=== PATIENT | male | born 1995 | race American Indian/Alaskan Native ===

== ENCOUNTER 2020-06-27 15:34 | Emergency (ER) | payer SELFPAY ==
[2020-06-27 15:58] VITALS: BP 119/72
[2020-06-27] MEDS ORDERED: levETIRAcetam 1000 MG/NS 0.75% 1,000 MG/100 ML BAG IV ONE (16:42)
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
== END 2020-06-27 18:44 | disposition home or self-care (01) ==
LOC: ED 15:34
DX: G40.909 Epilepsy, unspecified, not intractable, without status epilepticus (principal); F17.200 Nicotine dependence, unspecified, uncomplicated; F12.10 Cannabis abuse, uncomplicated; Z91.14 Patient's other noncompliance with medication regimen; Z79.899 Other long term (current) drug therapy
CPT/HCPCS: 96365; 99283; J1953

== ENCOUNTER 2020-08-28 15:05 | Emergency (ER) | payer SELFPAY ==
[2020-08-28] MEDS ORDERED: levETIRAcetam 1000 MG/NS 0.75% 1,000 MG/100 ML BAG IV ONE (15:37)
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
[2020-08-28 16:06] LABS: Basophils % (Auto) 0.5 % (0.0-1.8); Eosinophils # (Auto) 0.1 K/mm3 (0.0-0.4); Eosinophils % (Auto) 1.5 % (0.0-4.3); Hematocrit 46.2 % (35.5-45.6); Hemoglobin 15.8 gm/dl (11.8-15.2); Lymphocytes # (Auto) 1.3 K/mm3 (1.2-5.4); Lymphocytes % (Auto) 19.2 % (13.4-35.0); Mean Corpuscular HGB Conc 34 % (32-34); Mean Corpuscular Volume 78 fl (84-94); Monocytes # (Auto) 0.4 K/mm3 (0.0-0.8); Monocytes % (Auto) 5.2 % (0.0-7.3); Platelet Count 194 K/mm3 (140-440); Red Cell Distribution Width 15.3 % (13.2-15.2)
[2020-08-28 16:37] LABS: Alanine Aminotransferase 23 units/L (7-56); Albumin 4.9 g/dL (3.9-5); BUN/Creatinine Ratio 11; Blood Urea Nitrogen 10 mg/dL (9-20); Calcium 9.6 mg/dL (8.4-10.2); Hemolysis Index 25
[2020-08-28 16:39] LABS: Bilirubin,Direct < 0.2 mg/dL (0-0.2)
--- NOTE | 2020-08-28 16:41 | Cat Scan Report ---
CT head/brain wo con INDICATION / CLINICAL INFORMATION: 25 years Male; Seizure. TECHNIQUE: Routine CT head without contrast. All CT scans at this location are performed using CT dos e reduction for ALARA by means of automated exposure control. COMPARISON: The study is compared to previous CT of 01/24/2020. FINDINGS: BRAIN / INTRACRANIAL CONTENTS: There is again a small focus of decreased attenuation involving medial frontal white matter adjacent to the frontal horn which remains nonspecific. Similar findings were n oted on the prior study. There appears be small a defect involving the right frontal calvarium and co rrelation would be needed regarding previous shunt or probe placement. Otherwise, the brain appears t o demonstrate appropriate attenuation. The ventricular system is unchanged in size and configuration. There is no clear CT evidence of acute intracranial hemorrhage or significant mass effect. ORBITS: No significant abnormality of visualized orbits. SINUSES / MASTOIDS: No significant abnormality in the visualized paranasal sinuses or mastoid air yung ls. CRANIOCERVICAL JUNCTION: No significant abnormality. ADDITIONAL FINDINGS: None. IMPRESSION: 1. There are milder continued white matter changes involving the frontal lobe as detailed above witho ut significant overall change from 01/24/2020. Signer Name: Patricio Pérez MD Signed: 08/28/2020 4:37 PM Workstation Name: [id number]
[2020-08-28 20:05] VITALS: BP 100/58
== END 2020-08-28 22:58 | disposition home or self-care (01) ==
LOC: ED 15:05
DX: G40.909 Epilepsy, unspecified, not intractable, without status epilepticus (principal); Z79.899 Other long term (current) drug therapy
CPT/HCPCS: 36415; 70450; 80048; 80076; 85025; 96374; 99284; J1953

== ENCOUNTER 2021-03-11 08:34 | Emergency (ER) | payer SELFPAY ==
[2021-03-11] MEDS ORDERED: levETIRAcetam 1000 MG/NS 0.75% 1,000 MG/100 ML BAG IV ONE (09:11)
--- NOTE | 2021-03-11 09:15 | Emergency Department Report ---
ED Seizure HPI - General Chief Complaint: Seizure Stated Complaint: SEIZURE Time Seen by Provider: 03/11/21 09:08 Source: EMS Mode of arrival: Stretcher Limitations: No Limitations - History of Present Illness Initial Comments: Patient is 25 years old male with history of seizure on Keppra. Patient brought to the emergency room via EMS from home for evaluation of multiple episode of seizure. According to the patient mother she told EMS that he had one last night and he had one this morning. EMS also reported that patient had another generalized tonic-clonic seizure in the ambulance with urinary incontinence. Patient received 2 mg of IV Ativan by EMS. No reported seizure since then. Patient mother stated that she is not sure if the patient is compliant with his medication or not. MD Complaint: seizure -: Last night, This morning Description of Episode: loss of consciousness, tonic-clonic movement, bladder incontinence, post-event confusion Witnessed:: Yes Trauma: No Seizure History: known seizure disorder Place: home Possible Precipitating Event: none Associated Symptoms: denies other symptoms Treatments Prior to Arrival: benzodiazepines - Related Data Previous Rx's Medication Instructions Recorded Last Taken Type levETIRAcetam [Keppra TAB] 500 mg PO BID #60 tablet 06/27/20 Unknown Rx levETIRAcetam [Keppra TAB] 500 mg PO BID #120 tablet 08/28/20 Unknown Rx Allergies Allergy/AdvReac Type Severity Reaction Status Date / Time No Known Allergies Allergy Verified 03/11/21 10:31 ED Review of Systems ROS: Stated complaint: SEIZURE Other details as noted in HPI Comment: All other systems reviewed and negative Constitutional: denies: chills, fever Respiratory: denies: cough, shortness of breath, SOB with exertion Gastrointestinal: denies: abdominal pain, nausea, vomiting Neurological: denies: headache, weakness, numbness, paresthesias, confusion ED Past Medical Hx - Past Medical History Hx Seizures: Yes Additional medical history: VANDANA - Surgical History Additional Surgical History: VANDANA - Social History Smoking Status: Unknown if ever smoked - Medications Home Medications: Home Medications Medication Instructions Recorded Confirmed Last Taken Type levETIRAcetam [Keppra TAB] 500 mg PO BID #60 tablet 06/27/20 Unknown Rx levETIRAcetam [Keppra TAB] 500 mg PO BID #120 tablet 08/28/20 Unknown Rx ED Physical Exam - General Limitations: No Limitations General appearance: in no apparent distress, postictal - Head Head exam: Present: atraumatic, normocephalic, normal inspection - Eye Eye exam: Present: normal appearance - ENT ENT exam: Present: normal exam, normal orophraynx, mucous membranes moist - Neck Neck exam: Present: normal inspection, full ROM. Absent: tenderness, meningismus - Respiratory Respiratory exam: Present: normal lung sounds bilaterally - Cardiovascular Cardiovascular Exam: Present: regular rate, normal rhythm, normal heart sounds - GI/Abdominal GI/Abdominal exam: Present: soft, normal bowel sounds. Absent: distended, tenderness, guarding, rebound, rigid, organomegaly, mass, bruit, pulsatile mass, hernia - Extremities Exam Extremities exam: Present: normal inspection, full ROM, normal capillary refill. Absent: tenderness, pedal edema, joint swelling, calf tenderness - Back Exam Back exam: Present: normal inspection, full ROM. Absent: CVA tenderness (R), CVA tenderness (L) - Neurological Exam Neurological exam: Present: alert, oriented X3, CN II-XII intact, normal gait, reflexes normal. Absent: motor sensory deficit - Psychiatric Psychiatric exam: Present: normal mood - Skin Skin exam: Present: warm, intact, normal color ED Course Vital Signs 03/11/21 08:38 Temperature 98.7 F Pulse Rate 89 Respiratory 18 Rate Blood Pressure 132/79 [Left] O2 Sat by Pulse 100 Oximetry ED Medical Decision Making - Lab Data Result diagrams: 03/11/21 12:06 03/11/21 12:06 - Medical Decision Making Patient is 25 years old male with history of seizure on Keppra. Patient brought to the emergency room via EMS from home for evaluation of multiple episode of seizure. According to the patient mother she told EMS that he had one last night and he had one this morning. EMS also reported that patient had another generalized tonic-clonic seizure in the ambulance with urinary incontinence. Patient received 2 mg of IV Ativan by EMS. No reported seizure since then. Patient mother stated that she is not sure if the patient is compliant with his medication or not. Patient remained stable in the ER with stable vital sign. Patient received 1 g of Keppra IV. No seizure activity observed. Labs reviewed and is unremarkable except for mild leukocytosis most likely secondary to seizure. No evidence clinically of infection. Patient given prescription for Keppra and advised to follow-up with his neurologist in the next 2 to 3 days and to return to the ER if he develop any new symptoms. Critical care attestation.: If time is entered above; I have spent that time in minutes in the direct care of this critically ill patient, excluding procedure time. ED Disposition Clinical Impression: Seizure Disposition: 01 HOME / SELF CARE / HOMELESS Is pt being admited?: No Condition: Stable Instructions: Seizure, Adult Referrals: PRIMARY CARE, [Primary Care Provider] - 3-5 Days
[2021-03-11 12:12] LABS: Hematocrit 48.4 % (35.5-45.6); Hemoglobin 16.2 gm/dl (11.8-15.2); Mean Corpuscular HGB Conc 33 % (32-34); Mean Corpuscular Volume 77 fl (84-94); Platelet Count 238 K/mm3 (140-440); Red Blood Count 6.26 M/mm3 (3.65-5.03); Red Cell Distribution Width 15.4 % (13.2-15.2)
[2021-03-11 12:35] LABS: Alanine Aminotransferase 30 units/L (7-56); Albumin 4.9 g/dL (3.9-5); BUN/Creatinine Ratio 19; Blood Urea Nitrogen 15 mg/dL (9-20); Calcium 10.1 mg/dL (8.4-10.2); Hemolysis Index 10
[2021-03-11 12:38] LABS: Bilirubin,Direct < 0.2 mg/dL (0-0.2)
[2021-03-11 16:31] VITALS: BP 111/59
[2021-03-11 16:48] LABS: Band Neutrophils # (Manual) 0.1 K/mm3; Total Cells Counted 100
[2021-03-11 16:49] LABS: Platelet Estimate Consistent w Auto; RBC Morphology Normal
== END 2021-03-11 16:37 | disposition home or self-care (01) ==
LOC: ED 08:34
DX: R56.9 Unspecified convulsions (principal); Z79.899 Other long term (current) drug therapy
CPT/HCPCS: 36415; 80048; 80076; 85007; 85025; 96365; 96366; 99284; J1953

== ENCOUNTER 2021-07-13 13:58 | Emergency (ER) | payer SELFPAY ==
[2021-07-13] MEDS ORDERED: SODIUM CHLORIDE 0.9% 1000 ML 1,000 ML IV ONE (14:11)
--- NOTE | 2021-07-13 14:18 | Emergency Department Report ---
HPI - General Chief Complaint: Seizure Time Seen by Provider: 07/13/21 14:10 - HPI HPI: 25-year-old male with history of seizure disorder brought in by EMS after an apparent seizure. According to the EMS report, the patient was in the bathroom and his mom heard a loud thump. She found the patient in the bathroom, confused consistent with a postictal state. The patient takes Keppra for seizure disorder. When EMS arrived, they stated that the patient was very confused, displayed no signs of trauma. His fingerstick glucose was found to be 57 and he was given 25 g of D50. Subsequently his fingerstick blood glucose was 180. Upon my assessment of the patient, he is now able to converse and states that he takes Keppra twice daily and has not missed any doses. He has no memory for the event earlier. He reports only a mild generalized headache at this time which is consistent with his prior postictal states. He denies any alcohol ingestion, recent fasting, or any other recent symptoms or complaints. Nonetheless, details of the HPI are highly limited due to the patient's clinical condition. ED Past Medical Hx - Past Medical History Hx Seizures: Yes Additional medical history: VANDANA - Surgical History Additional Surgical History: VANDANA - Social History Smoking Status: Unknown if ever smoked - Medications Home Medications: Home Medications Medication Instructions Recorded Confirmed Last Taken Type levETIRAcetam [Keppra TAB] 500 mg PO BID #60 tablet 06/27/20 Unknown Rx levETIRAcetam [Keppra TAB] 500 mg PO BID #120 tablet 08/28/20 Unknown Rx levETIRAcetam [Keppra TAB] 500 mg PO BID #60 tablet 03/11/21 Unknown Rx ED Review of Systems ROS: Stated complaint: SEIZURE Other details as noted in HPI ED Medical Decision Making - Lab Data Result diagrams: 07/13/21 14:54 07/13/21 14:54 Critical care attestation.: If time is entered above; I have spent that time in minutes in the direct care of this critically ill patient, excluding procedure time. ED Disposition Clinical Impression: Seizure, Fall from ground level, Sleep deprivation, Hypoglycemia Disposition: 01 HOME / SELF CARE / HOMELESS Is pt being admited?: No Condition: Stable Instructions: Seizure, Adult, Hypoglycemia, Preventing Hypoglycemia Additional Instructions: Continue to take your Keppra exactly as prescribed. Return to the emergency department for any worsening symptoms or new health concerns. Follow-up with a primary care doctor or neurologist within the next several days. Referrals: [facility] [Provider Group] - 3-5 Days
[2021-07-13 15:23] LABS: Alanine Aminotransferase 17 units/L (7-56); Albumin 4.5 g/dL (3.9-5); BUN/Creatinine Ratio 12; Blood Urea Nitrogen 12 mg/dL (9-20); Calcium 9.4 mg/dL (8.4-10.2); Hemolysis Index 5
[2021-07-13 15:24] LABS: Basophils % (Auto) 0.9 % (0.0-1.8); Eosinophils % (Auto) 1.2 % (0.0-4.3); Hematocrit 47.7 % (35.5-45.6); Hemoglobin 15.1 gm/dl (11.8-15.2); Lymphocytes # (Auto) 0.9 K/mm3 (1.2-5.4); Lymphocytes % (Auto) 24.7 % (13.4-35.0); Mean Corpuscular HGB Conc 32 % (32-34); Mean Corpuscular Volume 79 fl (84-94); Monocytes # (Auto) 0.3 K/mm3 (0.0-0.8); Monocytes % (Auto) 8.9 % (0.0-7.3); Platelet Count 205 K/mm3 (140-440); Red Blood Count 6.04 M/mm3 (3.65-5.03); Red Cell Distribution Width 15.3 % (13.2-15.2)
[2021-07-13 15:34] LABS: Bilirubin,Direct < 0.2 mg/dL (0-0.2)
[2021-07-13 16:30] VITALS: BP 98/53
[2021-07-13] MEDS ORDERED: levETIRAcetam 500 MG TAB PO ONE (18:03)
--- NOTE | 2021-07-13 18:33 | Cat Scan Report ---
CT head/brain wo con INDICATION / CLINICAL INFORMATION: 25 years Male; fall, seizure. TECHNIQUE: Routine CT head without contrast. All CT scans at this location are performed using CT dos e reduction for ALARA by means of automated exposure control. COMPARISON: 08/28/2020 FINDINGS: BRAIN / INTRACRANIAL CONTENTS: No acute hemorrhage, mass effect, midline shift, hydrocephalus, or acu te, large territorial infarct. No signs of significant atrophy or chronic infarct. No significant whi te matter abnormality seen. CRANIOCERVICAL JUNCTION: No significant abnormality. ORBITS: No significant abnormality of visualized orbits. SINUSES / MASTOIDS: Visualized paranasal sinuses and mastoid air cells are essentially clear. ADDITIONAL FINDINGS: Prominent soft tissue is seen in the roof the nasopharynx, presumably related to reactive adenoidal tissue. Please clinically correlate. IMPRESSION: 1. No focal mass, hemorrhage, hydrocephalus, or acute, large territorial infarct. Signer Name: Rocael Barraza MD, III Signed: 07/13/2021 6:28 PM Workstation Name: [id number]
--- NOTE | 2021-07-15 11:30 | Electrocardiograph Report ---
[facility] Test Date: 2021-07-13 Test Time: 14:09:51 Pat Name: DIANE ORTIZ Department: Room: Gender: M Kiln Setter: GRACE : 1995 Requested By: NE AJ Order Number: [id number] Reading MD: Monroe Manriquez Measurements Intervals [place] Rate: 61 P: 76 WA: 160 QRS: 85 QRSD: 110 T: 73 QT: 407 QTc: 411 Interpretive Statements Sinus rhythm ST elevation suggests early repolarization,consider acute pericarditis No previous ECG available for comparison Electronically Signed On 07-15-2021 11:30:02 EST by Monroe Manriquez
== END 2021-07-13 21:19 | disposition home or self-care (01) ==
LOC: ED 13:58
DX: G40.909 Epilepsy, unspecified, not intractable, without status epilepticus (principal); W18.39XA Other fall on same level, initial encounter; Y93.89 Activity, other specified; Y92.89 Other specified places as the place of occurrence of the external cause; Y99.8 Other external cause status; Z72.820 Sleep deprivation; E16.2 Hypoglycemia, unspecified
CPT/HCPCS: 36415; 70450; 80048; 80076; 80320; 82962; 83690; 83735; 85025; 93005; 93010; 96360; 99284; G0480

== ENCOUNTER 2021-10-19 12:35 | Emergency (ER) | payer OTHER ==
[2021-10-19 13:01] VITALS: BP 122/85
== END 2021-10-19 14:00 | disposition left against medical advice (07) ==
LOC: ED 12:35
DX: R56.9 Unspecified convulsions (principal); Z53.21 Procedure and treatment not carried out due to patient leaving prior to being seen by health care provider

== ENCOUNTER 2021-10-19 19:47 | Emergency (ER) | payer OTHER ==
[2021-10-19] MEDS ORDERED: levETIRAcetam 1000 MG/NS 0.75% 1,000 MG/100 ML BAG IV ONE (20:21)
--- NOTE | 2021-10-19 20:30 | Emergency Department Report ---
ED Seizure HPI - General Chief Complaint: Seizure Stated Complaint: SEIZURE Time Seen by Provider: 10/19/21 20:18 Source: EMS Mode of arrival: Stretcher Limitations: Altered Mental Status - History of Present Illness Initial Comments: 26 yo male with a history of seizures. Patient was here earlier for seizure but left prior to being evaluated. Apparently had a seizure after returning home. Mom provided Keppra refuse ED transport at that time. Patient had another seizure and therefore was subsequently was transported back to the hospital. Is currently postictal. No meds provided in route. Compliance with seizure medication unknown at this time. As per previous MAR patient has been prescribed Keppra - Related Data Previous Rx's Medication Instructions Recorded Last Taken Type levETIRAcetam [Keppra TAB] 500 mg PO BID #120 tablet 08/28/20 Unknown Rx levETIRAcetam [Keppra TAB] 500 mg PO BID #60 tablet 03/11/21 Unknown Rx levETIRAcetam [Keppra TAB] 500 mg PO BID #60 tablet 10/19/21 Unknown Rx Allergies Allergy/AdvReac Type Severity Reaction Status Date / Time No Known Allergies Allergy Verified 03/11/21 10:31 ED Review of Systems ROS: Stated complaint: SEIZURE Other details as noted in HPI Comment: All other systems reviewed and negative ED Past Medical Hx - Past Medical History Previous Medical History?: Yes Hx Seizures: Yes Additional medical history: VANDANA - Surgical History Past Surgical History?: Yes Additional Surgical History: VANDANA - Social History Smoking Status: Unknown if ever smoked - Medications Home Medications: Home Medications Medication Instructions Recorded Confirmed Last Taken Type levETIRAcetam [Keppra TAB] 500 mg PO BID #120 tablet 08/28/20 Unknown Rx levETIRAcetam [Keppra TAB] 500 mg PO BID #60 tablet 03/11/21 Unknown Rx levETIRAcetam [Keppra TAB] 500 mg PO BID #60 tablet 10/19/21 Unknown Rx ED Physical Exam - General Limitations: Altered Mental Status - Other Other exam information: General: No acute distress Head: Atraumatic Eyes: normal appearance ENT: Moist mucous membranes Neck: Normal appearance, no midline tenderness Chest: Clear to auscultation bilaterally CV: Regular rate and rhythm Abdomen: Soft, normal bowel sounds, nontender, nondistended, no rebound or guarding Back: Normal inspection Extremity: Normal inspection, full range of motion Neuro: Alert O x 3, no facial asymmetry, speech clear, no gross motor sensory deficit Psych: Appropriate behavior Skin: No rash ED Course Vital Signs 10/19/21 10/19/21 10/19/21 20:14 21:28 21:31 Temperature 97.9 F Pulse Rate 99 H 85 82 Respiratory 18 19 18 Rate Blood Pressure 113/74 113/74 Blood Pressure 150/69 [Right] O2 Sat by Pulse 96 93 97 Oximetry 10/19/21 10/19/21 10/19/21 21:45 22:01 22:15 Temperature Pulse Rate 69 Respiratory 19 17 17 Rate Blood Pressure 113/62 104/56 92/53 Blood Pressure [Right] O2 Sat by Pulse 96 96 96 Oximetry 10/19/21 10/19/21 10/19/21 22:31 22:45 23:40 Temperature Pulse Rate 87 Respiratory 43 H Rate Blood Pressure 115/61 115/61 120/54 Blood Pressure [Right] O2 Sat by Pulse 91 Oximetry 10/19/21 10/20/21 23:46 00:21 Temperature Pulse Rate Respiratory Rate Blood Pressure 120/54 120/54 Blood Pressure [Right] O2 Sat by Pulse 100 97 Oximetry - Reevaluation(s) Reevaluation #1: 10/19/21 22:00 pt alert, c/o feeling tired, states compliant with meds and he does not need a refill. awaiting iv keppra in ed. 22:31pt having another seizure at this time keppra ordered 2 hours ago was just started nurse told to provide ativan ED Medical Decision Making - Lab Data Result diagrams: 10/19/21 20:38 10/19/21 20:38 Lab Results 10/19/21 10/19/21 Range/Units 20:38 20:38 WBC 13.9 H (4.5-11.0) K/mm3 RBC 6.27 H (3.65-5.03) M/mm3 Hgb 16.2 H (11.8-15.2) gm/dl Hct 49.8 H (35.5-45.6) % MCV 80 L (84-94) fl MCH 26 L (28-32) pg MCHC 33 (32-34) % RDW 15.6 H (13.2-15.2) % Plt Count 262 (140-440) K/mm3 Lymph % (Auto) Nutritional Chemist [place] % (Auto) Nutritional Chemist Eos % (Auto) Nutritional Chemist Baso % (Auto) Nutritional Chemist Lymph # (Auto) Nutritional Chemist [place] # (Auto) Nutritional Chemist Eos # (Auto) Nutritional Chemist Baso # (Auto) Nutritional Chemist Seg Neutrophils % Nutritional Chemist Seg Neutrophils # Nutritional Chemist Sodium 136 L (137-145) mmol/L Potassium 5.0 (3.6-5.0) mmol/L Chloride 99.5 (98-107) mmol/L Carbon Dioxide 20 L (22-30) mmol/L Anion Gap 22 mmol/L BUN 11 (9-20) mg/dL Creatinine 0.8 (0.8-1.3) mg/dL Estimated GFR > 60 ml/min BUN/Creatinine Ratio 14 % Glucose 103 H (75-100) mg/dL Calcium 10.1 (8.4-10.2) mg/dL Magnesium 2.30 (1.7-2.3) mg/dL - Medical Decision Making 26 yo male with sz d/o had multiple sz today provided keppra and ativan in the ED plan to d/c once awake and at baseline Critical Care Time: No Critical care attestation.: If time is entered above; I have spent that time in minutes in the direct care of this critically ill patient, excluding procedure time. ED Disposition Clinical Impression: Seizure Disposition: 01 HOME / SELF CARE / HOMELESS Is pt being admited?: No Does the pt Need Aspirin: No Condition: Stable Instructions: Seizure, Adult Additional Instructions: Take the medication as prescribed. Follow-up with your doctor or doctor/clinic provided. Return if symptoms worsen as indicated by your discharge instructions. Prescriptions: levETIRAcetam [Keppra TAB] 500 mg PO BID #60 tablet Referrals: SANA BATES MD [Staff Physician] - 7-10 days (neurology ) Time of Disposition: 23:34
[2021-10-19 21:07] LABS: Hematocrit 49.8 % (35.5-45.6); Hemoglobin 16.2 gm/dl (11.8-15.2); Mean Corpuscular HGB Conc 33 % (32-34); Mean Corpuscular Volume 80 fl (84-94); Platelet Count 262 K/mm3 (140-440); Red Blood Count 6.27 M/mm3 (3.65-5.03); Red Cell Distribution Width 15.6 % (13.2-15.2)
[2021-10-19 21:14] LABS: BUN/Creatinine Ratio 14; Blood Urea Nitrogen 11 mg/dL (9-20); Calcium 10.1 mg/dL (8.4-10.2); Hemolysis Index 82
[2021-10-19] MEDS ORDERED: LORazepam 2 MG/ML VIAL ONE (22:31)
[2021-10-19] MEDS ORDERED: LORazepam 2 MG/ML VIAL IV ONE (22:32)
[2021-10-19 23:16] LABS: Anisocytosis 1+; Basophils % (Manual) 0 % (0.0-1.8); Eosinophils % (Manual) 0 % (0.0-4.3); Total Cells Counted 100
[2021-10-19 23:17] LABS: Platelet Estimate Consistent w Auto
[2021-10-20 03:31] VITALS: BP 120/54
== END 2021-10-20 04:47 | disposition home or self-care (01) ==
LOC: ED 19:47
DX: G40.909 Epilepsy, unspecified, not intractable, without status epilepticus (principal)
CPT/HCPCS: 36415; 80048; 83735; 85007; 85025; 96374; 96375; 99283; J1953; J2060